=== PATIENT | male | born 1975 | race Caucasian/White ===

== ENCOUNTER 2017-01-17 09:52 | Inpatient (IN) | payer OTHER ==
[~2017-01-17] VITALS: Ht 182.9 cm; Wt 95.2 kg
[2017-01-17] VITALS (17 sets, daily range): BP systolic 121–146; BP diastolic 69–88; PULSE 72–102; RESP 10–25; Ht 182.9 cm; Wt 95.2 kg
[2017-01-17] MEDS ORDERED: CEFAZOLIN 2 GM/50 ML (PMX) 50 ML IVPB SCH (10:30)
[2017-01-17] MEDS ORDERED: LACTATED RINGER'S 1,000 ML IV* SCH (10:30)
[2017-01-17] MEDS ORDERED: GELATIN SIZE 100 SPONGE ONE (11:40)
[2017-01-17] MEDS ORDERED: POLYMYXIN/BACITRACIN 1L IRRIG ONE (11:40)
[2017-01-17] MEDS ORDERED: THROMBIN 5000 UNIT VIAL ONE (11:40)
[2017-01-17] MEDS ORDERED: SURGIFOAM POWDER 1 GM KIT ONE (11:40)
[2017-01-17] MEDS ORDERED: BUPIVACAINE 0.5%/EPI (SDV) 30 ML INJ ONE (11:40)
--- NOTE | 2017-01-17 12:01 | HPN ---
Date/Time of Note Date/Time of Note DATE: 01/17/17 TIME: 12:01 Interval H&P Admission Note Pt. seen H&P reviewed: No system changes YOSEF HILL MD Jan 17, 2017 12:01
[2017-01-17] MEDS ORDERED: MIDAZOLAM 1 MG/ML 2 ML INJ ONE (12:23)
[2017-01-17] MEDS ORDERED: FENTAnyl 50 MCG/ML VIAL ONE ×2 (12:23→15:33)
[2017-01-17] MEDS ORDERED: BISACODYL 10 MG SUPP PR PRN (12:30)
[2017-01-17] MEDS ORDERED: CEPASTAT LOZENGE MT PRN (12:30)
[2017-01-17] MEDS ORDERED: AL HYDROX/MG HYDROX/SIMETH 30 ML CUP PO PRN (12:30)
[2017-01-17] MEDS ORDERED: CYCLOBENZAPRINE 10 MG TAB PO PRN (12:30)
[2017-01-17] MEDS ORDERED: HYDROmorphONE 0.5 MG/0.5 ML SYG IV PRN (12:30)
[2017-01-17] MEDS: CEFAZOLIN 1 GM/50 ML (PMX) 50 ML IVPB SCH ×2 (12:30→19:45)
[2017-01-17] MEDS ORDERED: ONDANSETRON 4 MG INJ IV PRN ×2 (12:30→16:00)
[2017-01-17] MEDS ORDERED: ACETAMINOPHEN 325 MG TAB PO PRN (12:30)
[2017-01-17] MEDS ORDERED: DIPHENHYDRAMINE 25 MG CAP PO PRN (12:30)
[2017-01-17] MEDS ORDERED: DIPHENHYDRAMINE 50 MG INJ IV PRN ×2 (12:30→16:00)
[2017-01-17] MEDS ORDERED: NALOXONE (0.4 MG/ML) INJ IV PRN (12:30)
[2017-01-17] MEDS ORDERED: LIDOCAINE 2% (SDV) 5 ML INJ ONE (12:31)
[2017-01-17] MEDS ORDERED: SUCCINYLCHOLINE CHLORIDE 100 MG/5 ML SYG IV ONE (12:31)
[2017-01-17] MEDS ORDERED: PROPOFOL 20 ML ONE (12:31)
[2017-01-17] MEDS ORDERED: ROCURONIUM 50 MG INJ ONE ×2 (12:31→14:09)
[2017-01-17] MEDS ORDERED: ONDANSETRON 4 MG INJ ONE (13:14)
[2017-01-17] MEDS ORDERED: FAMOTIDINE 20 MG INJ ONE (13:14)
[2017-01-17] MEDS ORDERED: DEXAMETHASONE 4 MG/ML 1 ML INJ ONE ×2 (13:14→15:00)
[2017-01-17] MEDS ORDERED: PROPOFOL 100 ML ONE (15:02)
[2017-01-17] MEDS ORDERED: HYDROmorphONE 2 MG/ML SYG ONE (15:04)
[2017-01-17] MEDS ORDERED: SUGAMMADEX SODIUM 200 MG/2 ML VIAL IV ONE (15:04)
--- NOTE | 2017-01-17 15:17 | SIPON ---
Date/Time of Note Date/Time of Note DATE: 01/17/17 TIME: 15:16 Operative Report Preoperative Diagnosis cervical ddd and stenosis Postoperative Diagnosis cervical ddd and stenosis Operation/Procedure Performed cervical fusion Surgeon see signature line assistant refinery operator naun Anesthesia: general Estimated blood loss: 10 - 50 ml's Transfusion Required none Specimen disk Grafts/Implants cage and plate Complications none YOSEF HILL MD Jan 17, 2017 15:17
[2017-01-17] MEDS: HYDROmorphONE 0.2 MG/ML PCA IV SCH ×2 (15:49→22:35)
[2017-01-17] MEDS ORDERED: FENTAnyl 50 MCG/ML VIAL IV PRN (16:00)
[2017-01-17] MEDS ORDERED: MEPERIDINE 25 MG INJ IV PRN (16:00)
[2017-01-17] MEDS ORDERED: PROCHLORPERAZINE 10 MG INJ IV PRN (16:00)
[2017-01-17] MEDS: HYDROmorphONE (0.2 MG/ML) 10ML SYG IV PRN ×2 (16:13→16:29)
--- NOTE | 2017-01-17 16:18 | RADRPT ---
PROCEDURE: Intraoperative imaging of the cervical spine with fluoroscopy. CLINICAL INDICATION: Neck pain. Intraoperative. TECHNIQUE: 8 images of the cervical spine were obtained in the operating room with an image intens ifier. No radiologist was in attendance. Fluoroscopy time is 0.4 minutes. COMPARISON: No prior study is available for comparison. FINDINGS: Surgical instruments are noted overlying the cervical spine. Images demonstrate anterior fusion wit h plate, screws, and intervertebral cages at C5-6 and C6-7. IMPRESSION: 1. Intraoperative imaging of the cervical spine. RPTAT: QQ .Anup Mayers MD, MD Date Time Electronically viewed and signed by .Anup Mayers MD, on 01/17/2017 16:17 .R/
[2017-01-17] MEDS: 1/2 NS + KCL 20 MEQ 1,000 ML IV SCH ×2 (17:59→22:01)
--- NOTE | 2017-01-17 18:51 | OPR ---
DATE OF OPERATION: 01/17/2017 PREOPERATIVE DIAGNOSES: C5-C6, C6-C7 cervical disk disease and stenosis with radiculopathy. POSTOPERATIVE DIAGNOSIS: C5-C6, C6-C7 cervical disk disease and stenosis with radiculopathy. PROCEDURE: 1. Anterior cervical diskectomy and spinal cord decompression at C5-C6 and C6-C7. 2. Anterior cervical fusion at C5-C6, C6-C7. 3. Placement of intervertebral biomechanical device at C5-C6 and C6-C7. 4. Anterior hardware at C5, C6, C7. 5. Use of allograft. 6. Use of C-arm fluoroscopy with interpretation without radiologist present. 7. Use of operative microscope. 8. Intraoperative neuromonitoring (2 hours). IMPLANTS: 1. NeuroStructures Transom 32 mm cervical plate with 14 mm screws. 2. NeuroStructures Cavetto phusion Nitinol cages 5 mm height 16.5 mm with 14.5 mm depth at C5-C6 an d C6-C7. 3. Fibergraft matrix. PRIMARY SURGEON: Naresh Mock MD ASSISTANT PROGRAM DIRECTOR: Brandt Stallings MD NEED FOR INSURANCE COUNSELOR: During this spinal surgical procedure, my desk assistant was used to retrac t and protect the spinal nerves and dural sac. My desk assistant also employed the suction catheters to evacuate blood from the surgical field to improve visualization of the neural structures. The kacy tant was medically necessary to facilitate the completion of the surgery in a safe and expeditious johan. State of [place] regulations, as well as hospital bylaws, preclude the use of non-license d health care personnel, such as operating room technicians, to perform these functions. FINDINGS: Neuromonitoring at the start of the case revealed left C5 and C6 amplitude down 30%, left C7 amplitude down 20%. At the end of the case, nerve signals returned to normal. The patient had stenosis at C5-C6 and C6-C7 due to posterior osteophytes. ESTIMATED BLOOD LOSS: 40 mL. DRAINS: None. SPECIMENS: C5-C6 and C6-C7 disks. COMPLICATIONS OF PROCEDURES: None. ANESTHESIOLOGIST: Dr. Kendall TYPE OF ANESTHESIA: General. INDICATIONS FOR PROCEDURE: This is a 41-year-old gentleman with left cervical radiculopathy in the setting of cervical disk disease and stenosis at C5-C6 and C6-C7. He failed nonoperative measures, therefore, I recommended proceeding with the above-mentioned surgery. Preoperatively, we discussed the risks, benefits, and alternatives. He understood and wished to proceed. DESCRIPTION OF PROCEDURE IN DETAIL: The patient was identified in the preoperative holding area, elinor dash, taken to the operating room, where he was successfully placed under general an esthesia. Neuromonitoring leads were placed, sequential compressive devices were applied. Neuromon itoring was utilized during the procedure for 2 hours to include SSEP, MEP, and EMG. This was perfo rmed by [facility]. Start time was 1:00 p.m., closure time was 3:00 p.m. The patient was ruth sabino on the table in supine position. Towel rolls were placed behind the neck and between the scapul ar blades and the arms were tucked at the side and neck was extended. The neck was prepped and drap ed in usual sterile fashion. The left-sided neck incision was made. I incised the platysma. I the n identified an interval between the sternocleidomastoid and strap muscles and identified the anteri or spine. I placed bent spine needles into the C5-C6 and C6-C7 disks and took a lateral film to con firm the correct levels. Once this was confirmed, I subperiosteally dissected the longus colli musc ulature. Self-retaining retractor were then placed. Anesthesiologist deflate and reinflate endotra cheal cuff. Anterior osteophytes were then removed with a rongeur. Microscope was brought in. A r adical diskectomy was performed at both C5-C6 and C6-C7 using curettes, Kerrison punches, pituitary rongeurs and a high speed bur. I decompressed the spinal cord and neural foramina bilaterally with removal of the posterior osteophytes and longitudinal ligament at both C5-C6 and C6-C7. I prepared the endplates. I placed various trials and chose the appropriate graft height. I then took the nit inol cage within which I placed allograft and I impacted intervertebral biomechanical device into th e C6-C7 level to complete the fusion at this level. Again, at C5-C6. I took a nitinol cage within which I placed allograft and I impacted another intervertebral biomechanical disk into this level to complete the fusion at both C5-C6 and C6-C7. I then took the appropriate size, anterior cervical p late with 14 mm screws and placed this at C5, C6, C7 and locked the screws down. At this point, I t ook final AP and lateral images and I was happy with placement of the hardware and alignment of the spine. All nerve signals returned to normal. Microscope was taken off the field. The wound was th en irrigated. Hemostasis achieved with bipolar cautery, Surgifoam, Gelfoam thrombin and Bovie caute ry. The wound was dry and therefore, I elected not to place a drain. The wound was irrigated and c losed in layers. I closed the platysma with a 2-0 Vicryl stitch. I closed subcutaneous tissue with a 3-0 Vicryl stitch. Dermabond was then applied. The patient was then awakened from anesthesia and taken to recovery in stable condition. Lap, sponge, and instrument counts were correct x2. There were no apparent complications during the procedure. The patient will be admitted to the orthopedic [facility] for routine postoperative care to include pain c ontrol, neurovascular checks, antibiotics, and physical therapy. Dictated By: NARESH MOCK MD BB/SARY Conf#: [id number] DID#: [id number] CC: NARESH MOCK MD;*EndCC*
--- NOTE | 2017-01-17 20:16 | CONS ---
DATE OF ADMISSION: 01/17/2017 DATE OF CONSULTATION: 01/17/2017 POSTOPERATIVE MEDICAL CONSULTATION NOTE Thank you very much for allowing me to evaluate this 41-year-old male who just underwent laminectomy (anterior cervical diskectomy and fusion). As you well know, this patient has had persistent pain despite physical therapy and epidural injecti ons. You initially evaluated him on 12/09/2016 and because of continued neck and radicular arm pain , elected to proceed with surgery. Postoperatively, in recovery, he is comfortable with mild neck d iscomfort (anterior), without cough, wheezing, shortness of breath, nausea, vomiting, abdominal or c hest pain. PAST MEDICAL HISTORY: Unremarkable for diabetes, heart disease, hypertension or kidney disease. MEDICATIONS PRIOR TO ADMISSION: Includes Motrin, [place] and gabapentin. PAST SURGICAL HISTORY: Includes two right shoulder surgeries. SOCIAL HISTORY: Chews tobacco. PHYSICAL EXAMINATION: GENERAL: Comfortable appearing male in no acute distress. VITAL SIGNS: BP 122/80, pulse 70, respirations are 20, he was afebrile. EYES: Extraocular muscles were full. NOSE, MOUTH AND THROAT: Normal. NECK: There was no swelling or jugular venous distention. LUNGS: Clear. HEART: Rhythm regular. No murmur. No third or fourth sound. ABDOMEN: Nontender. Liver and spleen were not palpable. No mass or tenderness was noted. EXTREMITIES: No edema. Calves nontender. NEUROLOGIC: No lateralizing motor weakness. IMPRESSION: 1. Stable postop cervical spine surgery. 2. We will evaluate daily for signs and symptoms of thromboembolic disease. Dictated By: PRABHAKAR CHAVES/SARY Conf#: [id number] DID#: [id number] CC: YOSEF HILL MD;*EndCC*
[2017-01-17] MEDS: DOCUSATE SODIUM 100 MG CAP PO SCH (20:43)
[2017-01-18] MEDS: HYDROmorphONE 0.2 MG/ML PCA IV SCH ×2 (02:46→06:08)
[2017-01-18] MEDS: CEFAZOLIN 1 GM/50 ML (PMX) 50 ML IVPB SCH (05:19)
[2017-01-18 05:24] LABS: BASOPHILS % 0.1 % (0.0-2.0); EOSINOPHILS % 0.1 % (0.0-7.0); HEMATOCRIT 40.2 % (42.0-52.0); HEMOGLOBIN 13.3 g/dl (14.0-18.0); LYMPHOCYTES # 1.1 10^3/ul (0.8-2.9); LYMPHOCYTES % 7.7 % (15.0-51.0); MEAN CORPUSCULAR HEMOGLOBIN 27.7 pg (29.0-33.0); MEAN CORPUSCULAR HGB CONC 33.1 g/dl (32.0-37.0); MEAN CORPUSCULAR VOLUME 83.8 fl (82.0-101.0); MONOCYTE # 1.1 10^3/ul (0.3-0.9); MONOCYTES % 7.7 % (0.0-11.0); NEUTROPHIL # 11.7 10^3/ul (1.6-7.5); PLATELET COUNT 349 10^3/UL (140-415); RED CELL DISTRIBUTION WIDTH 12.5 % (11.5-14.5)
[2017-01-18] MEDS ORDERED: PANTOPRAZOLE (EC) 40 MG TAB PO SCH (06:00)
[2017-01-18 06:01] LABS: CALCIUM 9.5 mg/dl (8.4-10.2); CREATININE 0.71 mg/dl (0.61-1.24); MAGNESIUM 1.8 mg/dl (1.7-2.5)
--- NOTE | 2017-01-18 07:07 | DS ---
Date/Time of Note Date/Time of Note DATE: 01/18/17 TIME: 07:06 Discharge Summary Admission/Discharge Info Admit Date/Time Jan 17, 2017 at 09:52 Discharge Date/Time January 17 Discharge Diagnosis Status post cervical fusion Patient Condition: Good Procedures Cervical fusion Hx of Present Illness Neck and left arm pain Hospital Course The patient was admitted to the orthopedic [facility] after undergoing the above procedure. His postoperative course was uncomplicated. By postoperative day 1 he was deemed stable for discharge with follow-up arranged with the undersigned Home Meds No Active Prescriptions or Reported Meds Primary Care Provider Care Physician No Primary Pending Labs Laboratory Tests Test 01/18/17 04:39 01/18/17 04:46 Sodium Level 141mmol/L (135-144) Potassium Level 4.0mmol/L (3.5-5.1) Chloride Level 101mmol/L (97-110) Carbon Dioxide Level 29mmol/L (21-31) Anion Gap 15 (8-16) Blood Urea Nitrogen 12mg/dl (7-20) Creatinine 0.71mg/dl (0.61-1.24) Glucose Level 143mg/dl (70-220) Calcium Level 9.5mg/dl (8.4-10.2) Magnesium Level 1.8mg/dl (1.7-2.5) White Blood Count 14.010^3/ul (4.8-10.8) Red Blood Count 4.8010^6/ul (4.70-6.10) Hemoglobin 13.3g/dl (14.0-18.0) Hematocrit 40.2% (42.0-52.0) Mean Corpuscular Volume 83.8fl (82.0-101.0) Mean Corpuscular Hemoglobin 27.7pg (29.0-33.0) Mean Corpuscular Hemoglobin Concent 33.1g/dl (32.0-37.0) Red Cell Distribution Width 12.5% (11.5-14.5) Platelet Count 18596^3/UL (140-415) Mean Platelet Volume 10.0fl (7.4-10.4) Neutrophils % 84.0% (39.0-77.0) Lymphocytes % 7.7% (15.0-51.0) Monocytes % 7.7% (0.0-11.0) Eosinophils % 0.1% (0.0-7.0) Basophils % 0.1% (0.0-2.0) Nucleated Red Blood Cells % 0.0/100WBC (0.0-0.0) Neutrophils # 11.710^3/ul (1.6-7.5) Lymphocytes # 1.110^3/ul (0.8-2.9) Monocytes # 1.110^3/ul (0.3-0.9) Eosinophils # 0.010^3/ul (0.0-0.5) Basophils # 0.010^3/ul (0.0-0.1) Nucleated Red Blood Cells # 0.010^3/ul (0.0-0.0) YOSEF HILL MD Jan 18, 2017 07:07
--- NOTE | 2017-01-18 07:09 | DS ---
Date/Time of Note Date/Time of Note DATE: 01/18/17 TIME: 07:08 Discharge Summary Admission/Discharge Info Admit Date/Time Jan 17, 2017 at 09:52 Discharge Date/Time January 18 Discharge Diagnosis Status post cervical fusion Patient Condition: Good Procedures Cervical fusion Hx of Present Illness Neck and left arm pain Hospital Course The patient was admitted to the orthopedic [facility] after undergoing the above procedure. His postoperative course was uncomplicated. By postoperative day 1 he was deemed stable for discharge with follow-up arranged with the undersigned Home Meds No Active Prescriptions or Reported Meds Primary Care Provider Care Physician No Primary Pending Labs Laboratory Tests Test 01/18/17 04:39 01/18/17 04:46 Sodium Level 141mmol/L (135-144) Potassium Level 4.0mmol/L (3.5-5.1) Chloride Level 101mmol/L (97-110) Carbon Dioxide Level 29mmol/L (21-31) Anion Gap 15 (8-16) Blood Urea Nitrogen 12mg/dl (7-20) Creatinine 0.71mg/dl (0.61-1.24) Glucose Level 143mg/dl (70-220) Calcium Level 9.5mg/dl (8.4-10.2) Magnesium Level 1.8mg/dl (1.7-2.5) White Blood Count 14.010^3/ul (4.8-10.8) Red Blood Count 4.8010^6/ul (4.70-6.10) Hemoglobin 13.3g/dl (14.0-18.0) Hematocrit 40.2% (42.0-52.0) Mean Corpuscular Volume 83.8fl (82.0-101.0) Mean Corpuscular Hemoglobin 27.7pg (29.0-33.0) Mean Corpuscular Hemoglobin Concent 33.1g/dl (32.0-37.0) Red Cell Distribution Width 12.5% (11.5-14.5) Platelet Count 92149^3/UL (140-415) Mean Platelet Volume 10.0fl (7.4-10.4) Neutrophils % 84.0% (39.0-77.0) Lymphocytes % 7.7% (15.0-51.0) Monocytes % 7.7% (0.0-11.0) Eosinophils % 0.1% (0.0-7.0) Basophils % 0.1% (0.0-2.0) Nucleated Red Blood Cells % 0.0/100WBC (0.0-0.0) Neutrophils # 11.710^3/ul (1.6-7.5) Lymphocytes # 1.110^3/ul (0.8-2.9) Monocytes # 1.110^3/ul (0.3-0.9) Eosinophils # 0.010^3/ul (0.0-0.5) Basophils # 0.010^3/ul (0.0-0.1) Nucleated Red Blood Cells # 0.010^3/ul (0.0-0.0) YOSEF HILL MD Jan 18, 2017 07:09
--- NOTE | 2017-01-18 07:37 | CONS ---
Date/Time of Note Date/Time of Note DATE: 01/18/17 TIME: 07:34 Assessment/Plan Assessment/Plan Problems: (1) Cervical spine pain Status: Acute Comment: 1. Doing well post op with resolution of radicular left arm and shoulder pain, labs rev, can dc per ortho and PT Consultation Date/Type/Reason Admit Date/Time Jan 17, 2017 at 09:52 Initial Consult Date Detailed Summary Respiratory: No cough, No pleuritic pain, No shortness of breath Cardiovascular: no complaints Gastrointestinal: no complaints Genitourinary: no complaints Musculoskeletal: neck pain (mod and sl diff swallowing) Neurologic: other (he denies radic arm pain) Exam/Review of Systems Vital Signs Vitals Vital Signs Date Time Temp Pulse Resp B/P Pulse Ox O2 Delivery O2 Flow Rate FiO2 01/17/17 20:15 98.2 107 19 146/88 93 01/17/17 17:00 Nasal Cannula 2.0 Intake and Output 01/17/17 01/17/17 01/18/17 15:00 23:00 07:00 Intake Total 2000 ml 1430 ml Output Total 10 ml 2200 ml Balance 1990 ml -770 ml Exam Neck: other (collar in place) Respiratory: clear to auscultation Cardiovascular: regular rate and rhythm Gastrointestinal: soft Extremities: No edema (and no calf tend bilat) Results Result Diagram: 01/18/17 0446 01/18/17 0439 Results 24 hrs Laboratory Tests Test 01/18/17 04:39 01/18/17 04:46 Sodium Level 141 Potassium Level 4.0 Chloride Level 101 Carbon Dioxide Level 29 Anion Gap 15 Blood Urea Nitrogen 12 Creatinine 0.71 Glucose Level 143 Calcium Level 9.5 Magnesium Level 1.8 White Blood Count 14.0 H Red Blood Count 4.80 Hemoglobin 13.3 L Hematocrit 40.2 L Mean Corpuscular Volume 83.8 Mean Corpuscular Hemoglobin 27.7 L Mean Corpuscular Hemoglobin Concent 33.1 Red Cell Distribution Width 12.5 Platelet Count 349 Mean Platelet Volume 10.0 Neutrophils % 84.0 H Lymphocytes % 7.7 L Monocytes % 7.7 Eosinophils % 0.1 Basophils % 0.1 Nucleated Red Blood Cells % 0.0 Neutrophils # 11.7 H Lymphocytes # 1.1 Monocytes # 1.1 H Eosinophils # 0.0 Basophils # 0.0 Nucleated Red Blood Cells # 0.0 Medications Medications Current Medications Potassium Chloride/Sodium Chloride (1/2 NS + KCl 20 Meq) 1,000 ml @ 100 mls/hr Q10H IV Last administered on 01/17/17 17:59; Admin Dose 100 MLS/HR; Start at 12:01 Acetaminophen/ Hydrocodone Bitart ([place] (10/325)) 1 tab Q4H PRN PO PAIN LEVEL 1-5; Start 01/18/17 at 10:00 Acetaminophen/ Hydrocodone Bitart ([place] (10/325)) 2 tab Q4H PRN PO PAIN LEVEL 6-10; Start 01/18/17 at 10:00 Hydromorphone HCl (Dilaudid) 0.2 mg Q1H PRN IV BREAKTHROUGH PAIN; Start at 12:30 Ondansetron HCl (Zofran Inj) 4 mg Q6H PRN IV NAUSEA AND/OR VOMITING; Start at 12:30 Bisacodyl (Dulcolax Supp) 10 mg DAILY PRN GA CONSTIPATION; Start 01/17/17 at 12:30 Docusate Sodium (Colace) 100 mg BID PO Last administered on 01/17/17 20:43; Admin Dose 100 MG; Start 01/17/17 at 21:00 Pantoprazole (Protonix Tab) 40 mg DAILY@06 PO Last administered on 01/18/17 05:19; Admin Dose 40 MG; Start 01/18/17 at 06:00 Al Hydrox/Mg Hydrox/Simethicone (Mag-Al Plus) 15 ml Q6H PRN PO CONSTIPATION/ DYSPEPSIA; Start 01/17/17 at 12:30 Acetaminophen (Tylenol Tab) 650 mg Q4H PRN PO RAHMAN OR TEMP GREATER THAN 101.3F; Start 01/17/17 at 12:30 Cyclobenzaprine HCl (Flexeril) 10 mg TID PRN PO MUSCLE SPASMS Last administered on 01/17/17 20:42; Admin Dose 10 MG; Start 01/17/17 at 12:30 Phenol (Cepastat Lozenge) 1 lozenge PRN PRN MT SORE THROAT; Start 01/17/17 at 12:30 Diphenhydramine HCl (Benadryl) 25 mg Q6H PRN PO ITCHING; Start 01/17/17 at 12: 30 Diphenhydramine HCl (Benadryl) 25 mg Q6H PRN IV ITCHING; Start 01/17/17 at 12: 30 Naloxone HCl (Narcan) 0.2 mg Q2M PRN IV RR 8 BREATHS/MIN OR LESS; Start at 12:30 Hydromorphone HCl (Dilaudid MUTUAL FUND ACCOUNTANT) MUTUAL FUND ACCOUNTANT to be started in PACU Q4PCA IV Last administered on 01/18/17t 06:08; Admin Dose 6 MG; Start 01/17/17 at 12:30 Miscellaneous Information 1. Hold MUTUAL FUND ACCOUNTANT at 1,000... MUTUAL FUND ACCOUNTANT IV ; Start 01/17/17 at 12 :30 PRABHAKAR SHAFFER MD Jan 18, 2017 07:37
[2017-01-18 08:23] VITALS: BP 131/62; RESP 16
[2017-01-18] MEDS: DOCUSATE SODIUM 100 MG CAP PO SCH (09:19)
[2017-01-18] MEDS ORDERED: HYDROCODONE/APAP (10/325) TAB PO PRN ×2 (10:00)
== END 2017-01-18 14:40 | disposition home or self-care (01) | DRG 473 ==
LOC: REC 09:52 → MS1 17:00
PROVIDERS: ADMIT Specialist; ATTEND Specialist
PROC: 0RB30ZZ Excision of Cervical Vertebral Disc, Open Approach (ICD-10-PCS; 2017-01-17)
PROC: 0RG20A0 Fusion of 2 or more Cervical Vertebral Joints with Interbody Fusion Device, Anterior Approach, Anterior Column, Open Approach (ICD-10-PCS; principal; 2017-01-17 12:00)
DX: M50.123 Cervical disc disorder at C6-C7 level with radiculopathy (principal); M48.02 Spinal stenosis, cervical region; F17.220 Nicotine dependence, chewing tobacco, uncomplicated
CPT/HCPCS: 72040; 80048; 83735; 85025; 86999; 97161; C1713; C9113; J0690; J1100; J1170; J1200; J2175; J2250; J2405; J3010; J3480

== ENCOUNTER 2017-12-20 08:47 | Inpatient (IN) | END 2017-12-21 15:00 | disposition home or self-care (01) | DRG 455 ==